=== PATIENT | female | born 1960 | race Caucasian/White ===

== ENCOUNTER 2022-05-05 09:31 | Outpatient (CLI) | payer BC, SELFPAY ==
--- NOTE | ~2022-05-05 | MR_ITS ---
EXAMINATION: MR wrist LT w con DATE: 05/05/2022 11:22 INDICATION: Left wrist pain. Injury. TECHNIQUE: Magnetic resonance imaging (MRI) of the wrist was performed without intravenous contrast a fter intra-articular injection of contrast (MR arthrogram). COMPARISON: None FINDINGS: Intrinsic ligaments: There is a complete tear of scapholunate ligament at its scaphoid attachment. There is a tear of the proximal component of lunotriquetral ligament. Contrast injected into the radiocarpal compartment has passed into the midcarpal compartment. Triangular fibrocartilage complex (TFCC): There is 5 mm negative ulnar variance. Triangular fibrocartilage is normal. There is no contrast in t he distal radioulnar joint. Extensor wrist: There is mild extensor carpi ulnaris tendinopathy. Flexor wrist: The flexor tendons are normal. Median nerve is normal. Guyon's canal: Ulnar nerve is normal. 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 There is mild osteoarthrit is of triscaphe joint and first carpometacarpal joint. There is a 10 x 3 x 7 mm ganglion cyst palmar to distal radius that arises from the radioscaphoid joint. IMPRESSION: 1. Complete tear of scapholunate ligament. 2. Tear of the proximal component of lunotriquetral ligament. 3. Mild polyarticular osteoarthritis. 4. Mild extensor carpal ulnaris tendinopathy. 5. 10 mm ganglion cyst palmar to distal radius that arises from the radioscaphoid joint. Reviewed, dictated and finalized at location A. LEAF READER IMPRESSION: 1. Complete tear of scapholunate ligament. 2. Tear of the proximal component of lunotriquetral ligament. 3. Mild polyarticular osteoarthritis. 4. Mild extensor carpal ulnaris tendinopathy. 5. 10 mm ganglion cyst palmar to distal radius that arises from the radioscapho id joint.
--- NOTE | ~2022-05-05 | XR_ITS ---
. EXAMINATION: XR fl inj wrist LT for MR/CT DATE: 05/05/2022 11:05 INDICATION: Left wrist injury and pain. TECHNIQUE: A time-out was performed to verify the patient's name, date of , and procedure to b e performed. The procedure including the risks, benefits, and alternatives was discussed with the pat ient. Risks discussed included bleeding and infection. The patient understood the risks and agreed to proceed. The skin overlying the left radioscaphoid joint was prepped and draped in usual sterile fas hion. Anesthetic was administered with 1% lidocaine subcutaneously. A 23 G needle was advanced unde r fluoroscopic guidance into the joint. Subsequently, injectate consisting of 2 mL of 1:200 Multihan ce, 1:4 1% lidocaine, and 1:4 Omnipaque 240 was instilled. The needle was removed and the entry site was cleaned and dressed. There were no immediate complications. Fluoroscopy exposure time was 0.1 m inutes. The total number of images was 2. FINDINGS: Real-time fluoroscopy demonstrates the needle and contrast in the left radioscaphoid joint. IMPRESSION: 1. Successful left radioscaphoid joint injection of contrast for subsequent MR arthrography. Reviewed, dictated and finalized at location A. R OPERATOR
== END 2022-05-05 09:32 | disposition home or self-care (01) ==
PROVIDERS: Visit Provider Orthopaedic Surgery
DX: S69.92XA Unspecified injury of left wrist, hand and finger(s), initial encounter (principal); S63.592A Other specified sprain of left wrist, initial encounter; M19.032 Primary osteoarthritis, left wrist; M67.432 Ganglion, left wrist
CPT/HCPCS: 20605; 73222; 77002; A9577; Q9966